=== PATIENT | female | born 1980 | race Caucasian/White ===

== ENCOUNTER 2019-03-09 18:08 | Inpatient (IN) | payer OTHER ==
[2019-03-09 23:56] LABS: ADD MAN DIFF? NO
[2019-03-09] MEDS: morphine 4 MG/ML VIAL IV (23:57)
[2019-03-09] MEDS: ONDANSETRON 4 MG INJ IV (23:57)
[2019-03-09] MEDS: SOD CHLORIDE 0.9% 1,000 ML IV (23:57)
[2019-03-09 23:58] LABS: WHITE BLOOD COUNT 12.8 10^3/ul (4.8-10.8)
[2019-03-09 23:58] LABS: BASOPHILS % 0.2 % (0.0-2.0); HEMATOCRIT 37.4 % (37.0-47.0); HEMOGLOBIN 12.6 g/dl (12.0-16.0); LYMPHOCYTES # 0.7 10^3/ul (0.8-2.9); LYMPHOCYTES % 5.8 % (15.0-51.0); MEAN CORPUSCULAR HGB CONC 33.7 g/dl (32.0-37.0); MEAN CORPUSCULAR VOLUME 94.9 fl (82.0-101.0); MEAN PLATELET VOLUME 9.5 fl (7.4-10.4); MONOCYTE # 0.7 10^3/ul (0.3-0.9); MONOCYTES % 5.7 % (0.0-11.0); NEUTROPHIL # 11.3 10^3/ul (1.6-7.5); NEUTROPHILS % 87.7 % (39.0-77.0); PLATELET COUNT 190 10^3/UL (140-415); RED BLOOD COUNT 3.94 10^6/ul (4.20-5.40); RED CELL DISTRIBUTION WIDTH 12.1 % (11.5-14.5)
[2019-03-10 00:19] LABS: ADD UMIC YES; UR ASCORBIC ACID 20 mg/dL (NEGATIVE); UR BILIRUBIN (Dip) NEGATIVE (NEGATIVE); UR BLOOD (Dip) 2+ mg/dL (NEGATIVE); UR CLARITY CLEAR (CLEAR); UR COLOR YELLOW (YELLOW); UR GLUCOSE (Dip) NEGATIVE (NEGATIVE); UR KETONES (Dip) NEGATIVE (NEGATIVE); UR LEUKOCYTE ESTERASE (Dip) NEGATIVE Leu/ul (NEGATIVE); UR NITRITE (Dip) NEGATIVE (NEGATIVE); UR RBC 1 /HPF (0-5); UR SPECIFIC GRAVITY (Dip) 1.012 (1.003-1.030); UR SQUAMOUS EPITHELIAL CELL FEW /HPF (FEW); UR TOTAL PROTEIN (Dip) NEGATIVE (NEGATIVE); UR UROBILINOGEN (Dip) NEGATIVE (NEGATIVE); UR WBC 0 /HPF (0-5)
[2019-03-10 00:21] LABS: ALANINE AMINOTRANSFERASE 20 IU/L (13-69); ALBUMIN 3.7 g/dl (3.3-4.9); ALBUMIN/GLOBULIN RATIO 1.23; ALKALINE PHOSPHATASE 42 IU/L (42-121); ANION GAP 6 (5-13); ASPARTATE AMINO TRANSFERASE 23 IU/L (15-46); BILIRUBIN,INDIRECT 0.4 mg/dl (0-1.1); BILIRUBIN,TOTAL 0.4 mg/dl (0.2-1.3); BLOOD UREA NITROGEN 13 mg/dl (7-20); CALCIUM 8.8 mg/dl (8.4-10.2); CARBON DIOXIDE 27 mmol/L (21-31); CHLORIDE 100 mmol/L (97-110); CREATININE 0.57 mg/dl (0.44-1.00); Estimated GFR > 60 mL/min (>60); GLUCOSE 112 mg/dl (70-220); LIPASE 149 U/L (23-300); POTASSIUM 3.8 mmol/L (3.5-5.1); SODIUM 133 mmol/L (135-144); TOTAL PROTEIN 6.7 g/dl (6.1-8.1)
[2019-03-10] MEDS: HYDROmorphONE 0.5 MG/0.5 ML SYG IV (01:05)
[2019-03-10] MEDS ORDERED: ACETAMINOPHEN 325 MG TAB PO (02:00)
[2019-03-10] MEDS ORDERED: ONDANSETRON 4 MG INJ IV ×2 (02:00→08:00)
[2019-03-10] MEDS ORDERED: morphine 2 MG INJ (04:25)
[2019-03-10] MEDS: morphine 2 MG INJ IV ×5 (04:26→23:09)
[2019-03-10] MEDS ORDERED: ALPRAZOLAM 0.25 MG TAB PO (08:00)
[2019-03-10] MEDS: CITALOPRAM 20 MG TAB PO (08:22)
[2019-03-10] MEDS: SOD CHLORIDE 0.45% 1,000 ML IV (08:22)
[2019-03-10] MEDS: metroNIDAZOLE 500 MG/NS (PMX) 100 ML IVPB ×3 (08:22→22:10)
[2019-03-10] MEDS: METHYLPREDNISOLONE 40 MG INJ IV ×2 (08:22→20:41)
[2019-03-10] MEDS: LEVETIRACETAM 500 MG TAB PO ×2 (08:23→20:41)
[2019-03-10] MEDS: SULFASALAZINE 500 MG TAB PO ×4 (08:23→20:41)
[2019-03-10] MEDS: CIPROFLOXACIN 400MG/D5W 200 ML IVPB ×2 (09:34→20:41)
[2019-03-10] MEDS: HYDROCODONE/APAP (5/325) TAB PO ×4 (09:38→22:10)
[2019-03-10] MEDS: MESALAMINE (EC) 400 MG CAP PO (20:42)
[2019-03-10] MEDS: PANTOPRAZOLE 40 MG INJ IV (22:10)
[2019-03-11] MEDS: SOD CHLORIDE 0.45% 1,000 ML IV ×2 (00:40→06:27)
[2019-03-11] MEDS: HYDROCODONE/APAP (5/325) TAB PO ×4 (02:01→16:20)
[2019-03-11] MEDS: morphine 2 MG INJ IV ×3 (03:05→13:18)
[2019-03-11 05:07] LABS: ADD MAN DIFF? NO
[2019-03-11 05:11] LABS: ABNORMAL IP MESSAGE 1; BASOPHILS % 0.1 % (0.0-2.0); HEMATOCRIT 37.5 % (37.0-47.0); HEMOGLOBIN 12.4 g/dl (12.0-16.0); LYMPHOCYTES # 0.5 10^3/ul (0.8-2.9); LYMPHOCYTES % 4.6 % (15.0-51.0); MEAN CORPUSCULAR HEMOGLOBIN 31.7 pg (29.0-33.0); MEAN CORPUSCULAR HGB CONC 33.1 g/dl (32.0-37.0); MEAN CORPUSCULAR VOLUME 95.9 fl (82.0-101.0); MEAN PLATELET VOLUME 10.3 fl (7.4-10.4); MONOCYTE # 0.4 10^3/ul (0.3-0.9); MONOCYTES % 3.4 % (0.0-11.0); PLATELET COUNT 195 10^3/UL (140-415); RED BLOOD COUNT 3.91 10^6/ul (4.20-5.40); RED CELL DISTRIBUTION WIDTH 12.2 % (11.5-14.5)
[2019-03-11 05:17] LABS: POSITIVE DIFF @See below
[2019-03-11 05:32] LABS: ANION GAP 8 (5-13); BLOOD UREA NITROGEN 5 mg/dl (7-20); CALCIUM 9.3 mg/dl (8.4-10.2); CARBON DIOXIDE 25 mmol/L (21-31); CHLORIDE 103 mmol/L (97-110); CREATININE 0.54 mg/dl (0.44-1.00); Estimated GFR > 60 mL/min (>60); GLUCOSE 117 mg/dl (70-220); POTASSIUM 3.8 mmol/L (3.5-5.1); SODIUM 136 mmol/L (135-144)
[2019-03-11] MEDS: metroNIDAZOLE 500 MG/NS (PMX) 100 ML IVPB ×2 (05:55→13:56)
[2019-03-11] MEDS: PANTOPRAZOLE 40 MG INJ IV (06:26)
[2019-03-11] MEDS: MESALAMINE (EC) 400 MG CAP PO ×2 (08:29→12:04)
[2019-03-11] MEDS: METHYLPREDNISOLONE 40 MG INJ IV (08:29)
[2019-03-11] MEDS: CITALOPRAM 20 MG TAB PO (08:29)
[2019-03-11] MEDS: SULFASALAZINE 500 MG TAB PO ×2 (08:30→12:03)
[2019-03-11] MEDS: LEVETIRACETAM 500 MG TAB PO (08:30)
[2019-03-11] MEDS: CIPROFLOXACIN 400MG/D5W 200 ML IVPB (08:30)
== END 2019-03-11 16:27 | disposition short-term general hospital (02) | DRG 387 ==
LOC: E/R 18:08 → MS1 03-10 01:32
DX: K51.90 Ulcerative colitis, unspecified, without complications (principal); F12.90 Cannabis use, unspecified, uncomplicated; R19.7 Diarrhea, unspecified; G40.909 Epilepsy, unspecified, not intractable, without status epilepticus; M54.9 Dorsalgia, unspecified; F17.200 Nicotine dependence, unspecified, uncomplicated
CPT/HCPCS: 74176; 80048; 80053; 81001; 81025; 83690; 85025